=== PATIENT | male | born 1965 | race Caucasian/White ===

== ENCOUNTER → 2023-06-07 | Outpatient (CLI) | payer OTHER, SELFPAY ==
[2023-06-07 18:04] LABS: AST(SGOT) 21 U/L (15-37); Alanine Aminotransfer ALT/SGPT 34 U/L (16-61)
--- OUTSIDE RECORDS SUMMARY | 2023-06-07 19:50 | XMS RPT_ITS | CCD ---
Author Name Unknown Address [address] [place] [address] Organization [facility] Care Team Providers Care Interior Design Principal Name Role Phone Jerzy Vanegas DO Unavailable [phone] Jessie Slaughter DO Primary Care Provider Allergies Allergy Classification Reported Allergen(s) Allergy Type Date of Onset Reaction(s) Facility (1 source) tree nut, unspecified Drug Allergy 07-15-2015 [facility] Work Phone: Medications Completed/Discontinued Medications Medication Drug Class(es) Dates Sig (Normalized) Sig (Original) gluc rodriguez/msm/magnesium/vit c(GLUCOSAMINE COMPLEX-MSM CAP) (1 source) Start: 04-10-2007 gluc rodriguez/msm/magnesium/vi t c(GLUCOSAMINE COMPLEX-MSM CAP) Take one(1) tablet daily. 0 04/10/2007 Active Problems Active Problems Problem Classification Problem Date Documented Da te Episodic/Chronic Disorders of lipid metabolism (1 source) Mixed hyperlipidemia; Translations: [Mixed hyperlipidemia] Onset: 06-09-2007 06-09-2007 Chronic Other liver diseases (1 source) Liver cyst; Translations: [Other specified diseases of liver] 07-15-2015 Chronic Other nutritional; endocrine; and metabolic disorders (1 source) Obese class I; Translations: [Obesity, unspecified] Onset: 02-12-2020 02-12-2020 Chronic Other nutritional; endocrine; and metabolic disorders (1 source) Body mass index 30+ - obesity; Translations: [Body mass index (BMI) 34.0-34.9, adult] Onset: 02-12-2020 02-12-2020 Chronic Past or Other Problems Problem Classification Problem Date Documented Da te Episodic/Chronic Malaise and fatigue (1 source) Fatigue; Translations: [Other fatigue] Onset: 02-10-2018 02-10-2018 Episodic Pancreatic disorders (not diabetes) (1 source) Cyst of pancreas; Translations: [Cyst of pancreas] Onset: 02-21-2018 02-21-2018 Episodic Results Test Name Value Interpretation Reference Range Facil ity Encounters Encounter Date Encounter Type Care Provider Facility Start: 04-16-2022 Telephone encounter Jessie Slaughter DO Work Phone: [facility] Procedures Date Procedure Procedure Detail Performing Clinician Start: 04-18-2014 Colonoscopy Jessie preciado DO Work Phone: Plan of Treatment Date Care Activity Detail Author Start: 07-09-2029 Urine microalbumin profile DTA P,TDAP,TD (3 - Td or Tdap) [facility] Start: 04-18-2024 Colonoscopy COLONOSCOPY [facility] Start: 04-18-2024 COLORECTAL CANCER SCREENING COLORECTAL CANCER SCREENING [facility] Start: 10-08-2023 LIPID SCREEN LIPID SCREEN [facility] Start: 03-25-2023 PROSTATE CANCER SCRE ENING DISCUSSION PROSTATE CANCER SCREENING DISCUSSION [facility] Start: 12-31-2021 Influenza vaccination INFLUENZA (#1) [facility] Start: 05-02-2021 DEPRESSION ASSESSMENT DEPRESSION ASS ESSMENT [facility] Start: 03-25-2021 DIABETES SCREEN DIABETES SCREEN [facility] Start: 12-17-2013 SHINGRIX VACCINE (1 of 2) SHINGRIX V ACCINE (1 of 2) [facility] Start: 12-17-2008 COLOGUARD (FIT-DNA) COLOGUARD (FIT-D NA) [facility] Start: 12-17-[address] COLONOGRAPHY [facility] Start: 12-17-2008 FECAL OCCULT BLOOD FECAL OCCULT BLOO D [facility] Start: 12-17-2008 SIGMOIDOSCOPY SIGMOIDOSCOPY [facility] Start: 12-17-1981 HEPATITIS C SCREENING HEPATITIS C SC REENING [facility] Start: 12-17-1981 HIV SCREENING HIV SCREENING [facility] Start: 06-19-1964 COVID-19 VACCINE (#1) COVID-19 VACCI NE (#1) [facility] Start: 1965 HEPATITIS B (1 of 3 - 3-dose series) HEPATITIS B (1 of 3 - 3-dose series) [facility] Immunizations Immunization Date Immunization Notes Care Provider Cynthia tay 02-12-2020 influenza, injectabl e, quadrivalent, contains preservative Jessie Sheets DO Work Phone: [facility] 07-10-2019 tetanus toxoid, redu ren diphtheria toxoid, and acellular pertussis vaccine, adsorbed Jessie Sheets DO Work Phone: [facility] 02-10-2018 influenza, injectabl e, quadrivalent, contains preservative Jessie Sheets DO Work Phone: [facility] 02-10-2018 tetanus toxoid, redu ren diphtheria toxoid, and acellular pertussis vaccine, adsorbed Jessie Sheets DO Work Phone: [facility] Payers Date Payer Category Payer Private Health Insurance [facility] CHO[employer] PLUS [id number] 2018-Present [phone] [address] [place] [address] O [id number] Social History Date Type Detail Facility Start: 02-10-2018 Tobacco smoking stat us [facility] Never smoked tobacco [facility] Start: 02-10-2018 Tobacco use and exposure Smoke less tobacco non-user [facility] Start: 02-26-2020 Alcohol intake 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 The patient cancelled the appointment do to a conflict. Shy Zheng ----- Message from Marlen Chapin sent at 04/16/2022 9:33 AM EST ----- Regarding: Medicine/Sheets/Same Day Appt FYI Subject Line Format: Medicine / [Provider Name] / [Issue] Patient has been identified by name and Date of (Y/N): Y Patient: Pavel Beckham Date of : 1965 Provider for this encounter: Jessie Slaughter DO Reason for the call/escalation: Pt thinks he has a kidney stone for the past week. 4cq triggered same day, but nothing until Tuesday. Scheduled pt for 04/19/22 at 9:[address] Slaughter. Was Patient Referred to [facility]/Seek Emergency Treatment (Y/N): na Did Patient Agree (Y/N): na Was An Attempt Made To Transfer The Patient To The Office (Y/N): na Were You Able To Reach Someone At The Office (Y/N): na If Yes - Patient Was Transferred To (Caregivers Name): na If No - Which [facility] Leadership Interior Design Principal Did You Speak With Regarding This Patient: na Was an appointment scheduled (Y/N): Y-04/19/23 at 9:[address] Slaughter Reason patient was requesting visit (RFV/signs and symptoms/diagnosis) : possible Kidney Stone Person calling if other than patient: pt Return call to if other than patient: pt Best contact number: [phone] Thank you, Marlen Chapin April 16, 2022 9:33 AM documented in this encounter [facility] History of Past illness Narrative 04-18-2014 Note Date & Type Note Facility documented as of this encounter (statuses as of 04/20/2022) [facility] Summary Purpose Family History No Family History Records FoundNo Family History Records FoundNo Family History Records Found Advance Directives No Advanced Directives Records FoundNo Advanced Directives Records FoundNo Advanced Directives Records Found Additional Source Comments (unrecognized sect ion and content) No Status Records FoundNo Status Records FoundNo Status Records Found INFORMATION SOURCE (unrecogn ized section and content) DATE CREATED AUTHOR AUTHOR'S ORGANIZ ATION 05/27/2021 [facility] DATE CREATED AUTHOR AUTHOR'S ORGANIZ ATION 04/24/2022 [facility] Source Comments (unrecognize d section and content) In the event this informatio n is protected by the Federal Confidentiality of Alcohol and Drug Abuse Patient Records regulations: The Federal rules restrict any use of the information to criminally investigate or prosecute any alcohol or drug abuse patient.[facility] Reason for Visit (unrecogniz ed section and content) Care Teams (unrecognized sec tion and content) FOR RECORDS PERTAINING TO PATIENTS WHO ARE OR HAVE BEEN ENROLLED IN A CHEMICAL DEPENDENCY/SUBSTANCEABUSE PROGRAM, SOME INFORMATION MAY BE OMITTED. This clinical summary was aggregated from multiple sources. Caution should be exercised in using it in the provision of clinical care. This summary normalizes information from multiple sources, and as a consequence, information in this document may materially change the coding, format and clinical context of patient data. In addition, data may be omitted in some cases. CLINICAL DECISIONS SHOULD BE BASED ON THE PRIMARY CLINICAL RECORDS. [facility]. provides no warranty or guarantee of the accuracy or completeness of information in this document.
== END | disposition home or self-care (01) ==
PROVIDERS: Referring Provider Podiatrist; Visit Provider Podiatrist
DX: B35.1 Tinea unguium (principal)
CPT/HCPCS: 36415; 84450; 84460